=== PATIENT | female | born 1980 | race Caucasian/White ===

== ENCOUNTER 2017-03-07 01:57 | Emergency (ER) | payer OTHER ==
[~2017-03-07] VITALS: Ht 185.4 cm; Wt 102.0 kg
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
[~2017-03-07 01:57] MED LIST: ANTIVERT PO; FLEXERIL10 M1 PO; IBUPROFEN800 MG PO; NO MEDICATIONS; PERCOCET 5-3251 TAB PO; ROBITUSSIN A-C S5 ML PO; TESSALON200 MG PO; ULTRAM PO
== END 2017-03-07 04:41 | disposition home or self-care (01) ==
LOC: CED 01:57
DX: S20.212A Contusion of left front wall of thorax, initial encounter (principal); Z90.710 Acquired absence of both cervix and uterus; F17.200 Nicotine dependence, unspecified, uncomplicated; W50.0XXA Accidental hit or strike by another person, initial encounter; Y92.009 Unspecified place in unspecified non-institutional (private) residence as the place of occurrence of the external cause
CPT/HCPCS: 71101; 96372; 99283; J1885